=== PATIENT | male | born 1980 | race African-American/Black ===

== ENCOUNTER 2017-08-04 22:30 | Emergency (ER) | payer BC ==
[2017-08-04 22:44] VITALS: BP 119/79; PULSE 73; TEMP 98.3; BMI 29.0
[2017-08-04] MEDS ORDERED: OSELTAMIVIR PHOSPHATE 75 MG CAPSULE PO ONE (22:55)
--- NOTE | 2017-08-04 22:57 | PDOC ---
History of Present Illness - General Chief Complaint: Respiratory Stated Complaint: FLU LIKE SYMPTOMS Time Seen by Provider: 08/04/17 22:40 History Source: Patient Exam Limitations: No Limitations - History of Present Illness Initial Comments: 08/04/17 22:58 This is a 37-year-old male who comes in complaining of flulike illness symptoms 3 days. Patient complaining of headache, body ache, fever, chills, mild cough nonproductive. He shouldn't did not get his flu shot this year patient denies any nausea, vomiting or diarrhea. PAST MEDICAL HISTORY: no significant history PAST SURGICAL HISTORY: no significant history FAMILY HISTORY: no pertinant history SOCIAL HISTORY: Pt lives with family and is employed. MEDICATIONS: reviewed ALLERGIES: As per nursing notes Review of Systems General: + fevers , + chills, no weakness, no weight loss HEENT: No change in vision. No sore throat,. No ear pain CardioVascular: No chest pain or shortness of breath Respiratory:+ cough, no wheezing. Gastrointestinal: no nausea, vomitting, diarrhea or constipation, No rectal bleeding Genitourinary: No dysuria, hematuria, or frequency Musculoskeletal: No joint or muscle pain or swelling Neurologic: No headache, vertigo, dizziness or loss of consciousness Psychiatric: nor depression Skin: No rashes or easy bruising Endocrine: no increased thirst or abnormal weight change Allergic: no skin or latex allergy All other systems reviewed and normal Exam: General: Well-nourished well-developed individual, no acute distress HEENT: Throat: Normal, tonsils normal, no erythema or exudate Neck: Supple, no meningeal signs, no lymphadenopathy Eyes::Pupils equal reactive and round, extraocular motion intact Chest: Nontender to palpation Cardiac: S1-S2 normal, regular rate and rhythm, no murmurs rubs or gallops Respiratory: Lungs clear to auscultation bilateral Abdomen: Soft, nondistended, normal bowel sounds, nontender to palpation diffusely Extremities: Warm, dry, no cyanosis, clubbing, or edema Skin: No rashes Neuro: Alert and oriented x3, CN II - XII intact, nonfocal exam with normal strength, normal sensation, normal reflexes, normal gait, Psych: Normal mood and affect Assessment and plan: This is a 37-year-old male with influenza-like illness. Patient did not get the flu shot this year and fluids and make in this area. Patient was started on Tamiflu, told to take Tylenol and/or Motrin for his symptoms and continue the Tamiflu for 5 more days. Patient discharged will follow-up with his primary care doctor. Patient given a note for no work for the rest of the week Past History - Past Medical History Allergies/Adverse Reactions: Allergies Allergy/AdvReac Type Severity Reaction Status Date / Time No Known Allergies Allergy Unverified 08/04/17 22:32 Home Medications: Ambulatory Orders Oseltamivir Phosphate [Tamiflu] 75 mg PO BID #10 capsule 08/04/17 Asthma: Yes COPD: No - Suicide/Smoking/Psychosocial Hx Smoking History: Never smoked Have you smoked in the past 12 months: No Information on smoking cessation initiated: No Hx Alcohol Use: Yes (SOCIAL) Drug/Substance Use Hx: No Substance Use Type: Alcohol *Physical Exam - Vital Signs Last Vital Signs Temp Pulse Resp BP Pulse Ox 98.3 F 73 18 119/79 100 08/04/17 22:31 08/04/17 22:31 08/04/17 22:31 08/04/17 22:31 08/04/17 22:31 *DC/Admit/Observation/Transfer Diagnosis at time of Disposition: Influenza-like illness - Discharge Dispostion Disposition: HOME Condition at time of disposition: Stable Admit: No - Prescriptions Prescriptions: Oseltamivir Phosphate [Tamiflu] 75 mg PO BID #10 capsule - Referrals - Patient Instructions Additional Instructions: Stay home the rest of the week. Stay well hydrated. Alternate Tylenol with Advil every 3-4 hours as needed for body aches, headache or fevers. Take Tamiflu one tablet twice a day for 5 days. Return to the emergency department immediately with ANY new, persistent or worsening symptoms. Continue any medications as previously prescribed by your physician. You should follow up with your primary doctor as soon as possible regarding today's emergency department visit. . Please make sure your doctor reviews the results of your emergency evaluation. Thank you for coming to the Emergency Department today for your care. It was a pleasure to see you today. Please note that your evaluation is INCOMPLETE until you follow-up with your doctor. - Post Discharge Activity Forms/Work/School Notes: Back to Work
== END 2017-08-04 23:34 | disposition home or self-care (01) ==
LOC: FER 22:30
DX: J11.1 Influenza due to unidentified influenza virus with other respiratory manifestations (principal); J45.909 Unspecified asthma, uncomplicated
CPT/HCPCS: 99282-25

== ENCOUNTER 2017-09-19 06:36 | Emergency (ER) | payer OTHER, BC ==
[2017-09-19 06:51] VITALS: BP 118/73; PULSE 64; TEMP 97.6; BMI 29.0
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
== END 2017-09-19 07:39 ==
LOC: FER 06:36
CPT/HCPCS: 99281-25